=== PATIENT | female | born 1945 | race Caucasian/White ===

== ENCOUNTER 2016-10-24 14:18 | Inpatient (IN) | payer MEDICARE, BC ==
[~2016-10-24] VITALS: Ht 175.3 cm; Wt 73.5 kg
[2016-10-25] MEDS ORDERED: MULT-135 PO (10:00)
[2016-10-25] MEDS ORDERED: LISI-515 PO (10:00)
[2016-11-01] VITALS (11 sets, daily range): BP systolic 110–140; BP diastolic 54–77; PULSE 77–114; RESP 16–18; TEMP 97.9–98.3; O2SAT 97–100
[2016-11-01] MEDS ORDERED: INSULIN HUMAN REGULAR 1,000 UNITS/10 ML VIAL SQ PRN (07:00)
[2016-11-01] MEDS ORDERED: LACTATED RINGER'S 1000 ML IV PRN (07:00)
[2016-11-01] MEDS ORDERED: METOPROLOL TARTRATE 25 MG TAB PO PRN (07:00)
[2016-11-01] MEDS ORDERED: POVIDONE IODINE 5% (ANTISEPSIS KIT) 4 APPLICATIONS EACH NARE PRN (07:00)
[2016-11-01] MEDS ORDERED: ceFAZolin 2 GM PREMIX 50 ML IV SCH (07:00)
[2016-11-01] MEDS ORDERED: CHLORHEXIDINE GLUCONATE 2 % 1 PACK (2 CLOTHS) TOPICAL PRN (07:00)
[2016-11-01] MEDS ORDERED: METRONIDAZOLE 500 MG/100 ML ISONTONIC SOLN IV PRN (07:00)
[2016-11-01] MEDS ORDERED: SODIUM CHLORID 0.9% 500 ML IV PRN (07:00)
--- NOTE | 2016-11-01 07:43 | PD.HP.UP ---
H&P Update Note The Pre-Admit History and Physical Examination regarding the above named patient was reviewed (including, but not limited to, vital signs, heart, lungs, co-morbid conditions), and upon re-examination it is noted that: the patient's condition has not significantly changed since the last examination. Anali Thomas MD November 01, 2016 07:43
[2016-11-01] MEDS ORDERED: FAMOTIDINE 20 MG/2 ML VIAL ONE (08:12)
[2016-11-01] MEDS ORDERED: MIDAZOLAM HCL 2 MG/2 ML VIAL ONE (08:12)
[2016-11-01] MEDS ORDERED: ACETAMINOPHEN 1000 MG/100 ML VIAL IV ONE (08:43)
[2016-11-01] MEDS ORDERED: SUGAMMADEX SODIUM 200 MG/2 ML VIAL IV PUSH ONE ×2 (11:44)
[2016-11-01] MEDS ORDERED: ONDANSETRON HCL 4 MG/2 ML VIAL IV PUSH ONE (12:00)
[2016-11-01] MEDS ORDERED: NORMOSOL R INJ 1,000 ML IV ONE (12:00)
[2016-11-01] MEDS ORDERED: ePHEDrine/NS 25 MG/5 ML SYR IV ONE (12:00)
[2016-11-01] MEDS ORDERED: PROPOFOL 200 MG/20 ML AMP IV ONE (12:00)
[2016-11-01] MEDS ORDERED: PHENYLEPH/NS 1000 MCG/10 ML SYR IV ONE (12:00)
[2016-11-01] MEDS ORDERED: VECURONIUM BROMIDE 20 MG VIAL IV ONE (12:00)
[2016-11-01] MEDS ORDERED: LACTATED RINGER'S 1000 ML INJ 1,000 ML IV ONE (12:00)
[2016-11-01] MEDS ORDERED: POTASSIUM CHLOR 20 MEQ PREMIX 100 ML IV PRN (12:15)
[2016-11-01] MEDS ORDERED: ENALAPRILAT 2.5 MG/2 ML VIAL IV PRN (12:15)
[2016-11-01] MEDS ORDERED: ENALAPRILAT 1.25 MG/ML VIAL IV PRN (12:15)
[2016-11-01] MEDS ORDERED: Post-op Orders (for Pharmacy) MISC XX ONE (12:15)
[2016-11-01] MEDS ORDERED: MORPHINE SULFATE 30 MG/30 ML PCA IV SCH (12:15)
[2016-11-01] MEDS ORDERED: POTASSIUM CHLOR 40 MEQ PREMIX 100 ML IV PRN (12:15)
[2016-11-01] MEDS ORDERED: BENZOCAINE 6 MG/MENTHOL 10 MG LOZENGE BUCCAL PRN (12:15)
[2016-11-01] MEDS ORDERED: ACETAMINOPHEN 325 MG TAB PO PRN (12:15)
[2016-11-01] MEDS ORDERED: ACETAMINOPHEN/HYDROcodone 325 MG/5 MG TAB PO PRN ×2 (12:15)
[2016-11-01] MEDS ORDERED: NALOXONE HCL 0.4 MG/ML AMP IV PRN (12:15)
[2016-11-01] MEDS ORDERED: diphenhydrAMINE HCL 50 MG/ML VIAL IV PRN (12:15)
[2016-11-01] MEDS ORDERED: ceFAZolin INJ 1,000 MG VIAL IV ONE (12:18)
[2016-11-01] MEDS ORDERED: DO NOT ADM ANY ANTICOAGULANT DRUGS PRN (12:25)
[2016-11-01 12:58] LABS: AUTOMATED NEUTROPHIL # 8.2 TH/MM3 (1.8-7.7); BASOPHIL % 0.1 % (0.0-2.0); EOSINOPHIL % 0.1 % (0.0-4.0); HEMATOCRIT 35.8 % (35.0-46.0); HEMO FLAGS DIFF FINAL; LYMPH % 4.5 % (9.0-44.0); LYMPHOCYTE # 0.4 TH/MM3 (1.0-4.8); MEAN CELL VOLUME 96.6 FL (80.0-100.0); MEAN CORPUSCULAR HEMOGLOBIN 32.2 PG (27.0-34.0); MEAN CORPUSCULAR HGB CONC 33.4 % (32.0-36.0); MONO % 4.8 % (0.0-8.0); NEUT % 90.5 % (16.0-70.0); PLATELET COUNT 160 TH/MM3 (150-450); RED BLOOD COUNT 3.71 MIL/MM3 (4.00-5.30); RED CELL DISTRIBUTION WIDTH 12.7 % (11.6-17.2); WHITE BLOOD COUNT 9.1 TH/MM3 (4.0-11.0)
[2016-11-01] MEDS: KETOROLAC TROMETHAMINE 30 MG/ML (IVP) VIAL IVP SCH ×2 (13:00→17:25)
[2016-11-01] MEDS: D5-NS + KCL 20 MEQ INJ 1,000 ML IV SCH ×2 (13:00→21:46)
[2016-11-01 13:13] LABS: BICARBONATE 23.2 MEQ/L (21.0-32.0)
[2016-11-01] MEDS: DEXT 5%-NACL 0.9% 1000 ML INJ 1,000 ML IV SCH ×2 (13:29→23:00)
[2016-11-01] MEDS: PCA - TOTAL MG MORPHINE DELIVERED PER SHIFT SCH ×2 (14:00→21:46)
[2016-11-01] MEDS ORDERED: fentaNYL CITRATE 250 MCG/5 ML AMP ONE (14:11)
--- NOTE | 2016-11-01 15:11 | MP ---
cc: ASHIA THOMAS M.D. DATE OF SURGERY 11/01/2016 PREOPERATIVE DIAGNOSIS Ascending colon polyp. POSTOPERATIVE DIAGNOSIS Ascending colon polyp. PROCEDURE Robotic ascending colectomy. SURGEON Ashia Thomas [facility] ANESTHESIA General per ET tube OPERATIVE INDICATIONS The patient is a 71-year-old female who on recent colonoscopy was noted to have a sessile polyp in the ascending colon, unable to be removed via colonoscope. OPERATIVE FINDINGS Minimal adhesions of the omentum to the ascending colon and to the right anterior abdominal wall. The liver was visibly normal. The gallbladder was not visualized. The right ovary was visualized and was visibly normal as well. Upon removal of the specimen and opening, the patient was noted to have a 2-3 cm sessile polyp as well as a second tinier sessile polyp adjacent in the proximal ascending colon. OPERATIVE COURSE The patient was brought to the operating room, and placed in the supine position. After induction of general anesthesia, all bony prominences were carefully padded, and the bed was broken slightly. The skin of the anterior abdominal wall was then prepped and draped in the usual sterile fashion. A site was then chosen for the camera, being located 2 cm below and to the left of the umbilicus. A 10/12 port was placed at this location under direct vision using a laparoscope. CO2 insufflation was then performed and a brief abdominal survey was undertaken. The patient was noted to have some adhesions of the omentum to the ascending colon and to the anterior abdominal wall, but nothing that would preclude the robotic approach. The #1 port was then placed just to the left of the left midclavicular line, two fingerbreadths below the costal margin, and the assist port was placed 2 cm to the left of this, equal distance between the #1 port and the camera port. The patient was hydroplaned with head slightly down. The adhesions of the omentum to the anterior abdominal wall and the ascending colon were then dissected free using electrocautery. The omentum was then brought up-and-over the transverse colon, until we had good visibility. The remainder of the ports were then placed. The #3 port was placed just inside the right anterior superior iliac spine, and the #2 port was placed just to the right of midline, in the suprapubic area. The robot was then docked. The peritoneum below the ileocolic vessels were then scored and dissection continued in this plane, slowly dissecting free the ascending colon mesentery up to level of the duodenum. The duodenum was then carefully dissected free from the overlying mesentery, up to the level of the base of the transverse mesocolon. The plane was continued above the level of the pancreas, and laterally to the ascending colon. At this point, the small bowel was reversed back down into its more normal orientation, and the ileocolic area was gently placed on stretch. A window was then made around the ileocolic vessels, about chcf down their length towards the ileocecum, as this was known to be benign lesion. The artery was then dissected free circumferentially using electrocautery, and doubly clamped proximally, singly clamped distally, divided and ligated, using Hemolock clamps. The vein was then divided in the same fashion. Some additional dissection was done to free the omentum from where it had wrapped over and across the ascending colon in order to straighten out the colon. Eventually, we were able to straighten that out with some dissection. We had a nice straight visualization. A site was chosen for division of the ascending colon, just proximal to the hepatic flexure. The mesentery at this level was serially divided and ligated using the vessel sealer. A site was chosen for division of the terminal ileum, approximately 12 cm proximal to the ileocecal valve and the mesentery. The mesentery at this level was serially divided and ligated using the vessel sealer. The proximal small bowel was then placed against the distal ascending colon, and lay nicely without tension. Two stay sutures were placed proximally using 2-0 silk suture, and one stay suture was placed distally using 2-0 silk sutures. Small incisions were then made in the bowels just proximal to the planned anastomosis, using electrocautery. The [place] stapler was then brought onto the field. This was gently advanced with one limb down each limb of the bowel. This was closed along the antimesenteric border and fired, thus creating an enteroenterotomy. A reload of the [place] stapler was then placed transversely across the bowel at the proximal edge of the anastomosis, but distal to the enterotomies. This was closed and fired. A second load was necessary to complete the transection. The anastomosis was then examined and it lay nicely without tension. The bowel anastomosis appeared pink and healthy and of adequate length. The silk stay suture at the distal end of the anastomosis lay in a nice orientation as well. All dissection beds were then examined and there was no sign of any significant bleeding. The omentum was brought down to lay across the anastomosis and a locking bowel grasper was placed on the specimen. The robot was then undocked. An 8-10 cm incision was made in the suprapubic area and, using electrocautery, dissection was carried down to the fascia of the anterior abdominal wall. The anterior fascia was divided the length of the skin incision and the medial fibers of the rectus abdominis muscle were then divided as well, opening into the previous #2 port site. The posterior fascia/peritoneum was then divided as well and a wound protector was placed. The specimen was then retrieved and then taken to a back table where it was opened and the polyp was confirmed. An additional tiny polyp was noted to be just next to the polyp of note. The posterior fascia at the suprapubic site was closed in a running fashion using #1 PDS and the anterior fascia was closed in running fashion using #1 PDS. An OpSite was placed across the incision and CO2 insufflation was resumed. The 10/12 trocar sites at the right lower quadrant and the umbilical area were then closed using the crossbow device and 0 Vicryl suture. These sutures were placed and held, but not secured until the abdomen was desufflated. The air was desufflated to the extent possible. The previously placed sutures were then secured. All wounds were copiously irrigated with warm normal saline. The skin at the suprapubic incision was closed in a running subcuticular fashion using 3-0 Vicryl and the port sites were closed in an interrupted subcuticular fashion using 3-0 Vicryl. Steri-Strips and sterile dressing was applied. All sponge, needle and sponge counts were correct, and the patient was returned to the post anesthesia care in stable condition. MD SILVANO Knight/ROLANDO /12:19 PM /2:49 PM [facility]
[2016-11-01] MEDS: metroNIDAZOLE 500 MG INJ 100 ML IV SCH ×2 (15:37→23:30)
[2016-11-01] MEDS: SODIUM CHLORIDE 0.9% FLUSH 5 ML FLUSH IVF SCH (21:00)
[2016-11-02] VITALS (13 sets, daily range): BP systolic 101–167; BP diastolic 53–82; PULSE 78–95; RESP 16–20; TEMP 96.5–98.6; O2SAT 94–98
[2016-11-02] MEDS: KETOROLAC TROMETHAMINE 30 MG/ML (IVP) VIAL IVP SCH ×5 (01:31→23:52)
[2016-11-02] MEDS: D5-NS + KCL 20 MEQ INJ 1,000 ML IV SCH ×4 (04:07→21:11)
[2016-11-02] MEDS: PCA - TOTAL MG MORPHINE DELIVERED PER SHIFT SCH ×3 (05:34→21:01)
[2016-11-02] MEDS: DEXT 5%-NACL 0.9% 1000 ML INJ 1,000 ML IV SCH ×3 (05:51→21:08)
[2016-11-02 05:57] LABS: AUTOMATED NEUTROPHIL # 4.5 TH/MM3 (1.8-7.7); BASOPHIL % 0.1 % (0.0-2.0); EOSINOPHIL % 0.1 % (0.0-4.0); HEMATOCRIT 30.7 % (35.0-46.0); HEMO FLAGS DIFF FINAL; LYMPH % 13.1 % (9.0-44.0); LYMPHOCYTE # 0.8 TH/MM3 (1.0-4.8); MEAN CELL VOLUME 96.5 FL (80.0-100.0); MEAN CORPUSCULAR HEMOGLOBIN 33.4 PG (27.0-34.0); MEAN CORPUSCULAR HGB CONC 34.7 % (32.0-36.0); MONO % 13.9 % (0.0-8.0); NEUT % 72.8 % (16.0-70.0); PLATELET COUNT 140 TH/MM3 (150-450); RED BLOOD COUNT 3.18 MIL/MM3 (4.00-5.30); RED CELL DISTRIBUTION WIDTH 12.7 % (11.6-17.2); WHITE BLOOD COUNT 6.2 TH/MM3 (4.0-11.0)
[2016-11-02 06:24] LABS: BICARBONATE 24.8 MEQ/L (21.0-32.0); POTASSIUM 4.1 MEQ/L (3.5-5.1)
[2016-11-02] MEDS: LISINOPRIL 20 MG TAB PO SCH (09:25)
[2016-11-02] MEDS: PANTOPRAZOLE SODIUM 40 MG VIAL IVP SCH (09:25)
[2016-11-02] MEDS: metroNIDAZOLE 500 MG INJ 100 ML IV SCH (09:26)
[2016-11-02] MEDS: SODIUM CHLORIDE 0.9% FLUSH 5 ML FLUSH IVF SCH ×2 (09:26→21:00)
[2016-11-02] MEDS: HEPARIN SODIUM - SQ 10,000 UNITS/ML VIAL SQ SCH ×2 (11:23→23:52)
[2016-11-02] MEDS: ONDANSETRON HCL 4 MG/2 ML VIAL IV PRN (14:37)
[2016-11-02] MEDS: SODIUM CHLORIDE 0.9% FLUSH 5 ML FLUSH IVF PRN (14:40)
[2016-11-03] VITALS: BP 149/79; PULSE 81; RESP 20; TEMP 97.6; O2SAT 98
[2016-11-03] MEDS: ONDANSETRON HCL 4 MG/2 ML VIAL IV PRN ×2 (01:55→08:52)
[2016-11-03] MEDS: PCA - TOTAL MG MORPHINE DELIVERED PER SHIFT SCH ×3 (05:02→20:06)
[2016-11-03] MEDS: KETOROLAC TROMETHAMINE 30 MG/ML (IVP) VIAL IVP SCH ×4 (05:03→22:59)
[2016-11-03 05:38] LABS: AUTOMATED NEUTROPHIL # 5.9 TH/MM3 (1.8-7.7); BASOPHIL % 0.2 % (0.0-2.0); EOSINOPHIL # 0.1 TH/MM3 (0-0.4); EOSINOPHIL % 0.9 % (0.0-4.0); HEMATOCRIT 37.8 % (35.0-46.0); HEMO FLAGS DIFF FINAL; LYMPH % 8.7 % (9.0-44.0); LYMPHOCYTE # 0.7 TH/MM3 (1.0-4.8); MEAN CELL VOLUME 98.5 FL (80.0-100.0); MEAN CORPUSCULAR HGB CONC 33.5 % (32.0-36.0); MONO % 11.2 % (0.0-8.0); PLATELET COUNT 154 TH/MM3 (150-450); RED BLOOD COUNT 3.84 MIL/MM3 (4.00-5.30); RED CELL DISTRIBUTION WIDTH 13.4 % (11.6-17.2); WHITE BLOOD COUNT 7.5 TH/MM3 (4.0-11.0)
[2016-11-03 05:48] LABS: BICARBONATE 23.8 MEQ/L (21.0-32.0); POTASSIUM 4.5 MEQ/L (3.5-5.1)
[2016-11-03 08:00] VITALS: BP 180/80; PULSE 86; RESP 18; TEMP 96.8; O2SAT 95
[2016-11-03] MEDS: SODIUM CHLORIDE 0.9% FLUSH 5 ML FLUSH IVF SCH ×2 (08:53→20:05)
[2016-11-03] MEDS: LISINOPRIL 20 MG TAB PO SCH (08:53)
[2016-11-03] MEDS: PANTOPRAZOLE SODIUM 40 MG VIAL IVP SCH (08:53)
[2016-11-03] MEDS: D5-NS + KCL 20 MEQ INJ 1,000 ML IV SCH ×2 (11:15→20:06)
[2016-11-03] MEDS: HEPARIN SODIUM - SQ 10,000 UNITS/ML VIAL SQ SCH ×2 (11:16→22:58)
[2016-11-03 12:00] VITALS: BP 162/75; PULSE 72; RESP 18; TEMP 97.5; O2SAT 97
[2016-11-03] MEDS: DEXT 5%-NACL 0.9% 1000 ML INJ 1,000 ML IV SCH ×2 (15:00→20:07)
[2016-11-03 16:00] VITALS: BP 177/84; PULSE 89; RESP 18; TEMP 97.4; O2SAT 96
[2016-11-03 20:00] VITALS: BP 168/85; PULSE 88; RESP 18; TEMP 97.7; O2SAT 97
[2016-11-04] VITALS: BP 149/79; PULSE 92; RESP 18; TEMP 97.1; O2SAT 94
[2016-11-04] MEDS: PCA - TOTAL MG MORPHINE DELIVERED PER SHIFT SCH ×3 (04:54→22:00)
[2016-11-04] MEDS: KETOROLAC TROMETHAMINE 30 MG/ML (IVP) VIAL IVP SCH (04:54)
[2016-11-04 06:03] LABS: AUTOMATED NEUTROPHIL # 4.9 TH/MM3 (1.8-7.7); BASOPHIL # 0.1 TH/MM3 (0-0.2); BASOPHIL % 1.3 % (0.0-2.0); EOSINOPHIL # 0.2 TH/MM3 (0-0.4); EOSINOPHIL % 3.3 % (0.0-4.0); HEMATOCRIT 35.7 % (35.0-46.0); HEMO FLAGS DIFF FINAL; LYMPH % 12.6 % (9.0-44.0); LYMPHOCYTE # 0.9 TH/MM3 (1.0-4.8); MEAN CELL VOLUME 96.2 FL (80.0-100.0); MEAN CORPUSCULAR HGB CONC 34.3 % (32.0-36.0); MONO % 11.9 % (0.0-8.0); NEUT % 70.9 % (16.0-70.0); PLATELET COUNT 185 TH/MM3 (150-450); RED BLOOD COUNT 3.72 MIL/MM3 (4.00-5.30); RED CELL DISTRIBUTION WIDTH 12.6 % (11.6-17.2); WHITE BLOOD COUNT 6.9 TH/MM3 (4.0-11.0)
[2016-11-04 06:27] LABS: POTASSIUM 4.3 MEQ/L (3.5-5.1)
[2016-11-04 08:00] VITALS: BP 144/79; PULSE 96; RESP 17; TEMP 97.1; O2SAT 95
[2016-11-04] MEDS: SODIUM CHLORIDE 0.9% FLUSH 5 ML FLUSH IVF SCH ×2 (09:00→20:40)
[2016-11-04] MEDS: LISINOPRIL 20 MG TAB PO SCH (09:26)
[2016-11-04] MEDS: PANTOPRAZOLE SODIUM 40 MG VIAL IVP SCH (09:27)
[2016-11-04] MEDS: HEPARIN SODIUM - SQ 10,000 UNITS/ML VIAL SQ SCH (11:41)
[2016-11-04 12:00] VITALS: BP 179/81; PULSE 92; RESP 17; TEMP 97.6; O2SAT 97
[2016-11-04] MEDS: SODIUM CHLORIDE 0.9% FLUSH 5 ML FLUSH IVF PRN (12:15)
[2016-11-04 16:00] VITALS: BP 168/80; PULSE 90; RESP 17; TEMP 97.3; O2SAT 96
[2016-11-04] MEDS: ONDANSETRON HCL 4 MG/2 ML VIAL IV PRN (16:57)
[2016-11-04] MEDS: D5-NS + KCL 20 MEQ INJ 1,000 ML IV SCH (16:59)
[2016-11-04 20:00] VITALS: BP 174/81; PULSE 88; RESP 18; TEMP 98; O2SAT 96
[2016-11-04 22:00] VITALS: BP 140/72
[2016-11-05] VITALS: PULSE 88; RESP 18; TEMP 98.6; O2SAT 96
[2016-11-05] MEDS: D5-NS + KCL 20 MEQ INJ 1,000 ML IV SCH (05:05)
[2016-11-05] MEDS: PCA - TOTAL MG MORPHINE DELIVERED PER SHIFT SCH (06:00)
[2016-11-05 08:00] VITALS: BP 151/82; PULSE 95; RESP 20; TEMP 96.9; O2SAT 98
[2016-11-05] MEDS ORDERED: HYDR-3516 PO (08:14)
--- NOTE | 2016-11-05 08:17 | HHI.PR ---
Subjective Remarks POD#4 s/p ileocectomy Emesis yesterday Otherwise feels well, adequate pain control liquid stool Objective Vital Signs Date Time Temp Pulse Resp B/P Pulse Ox O2 Delivery O2 Flow Rate FiO2 11/05/16 06:00 20 11/05/16 00:00 98.6 88 18 96 11/04/16 22:00 140/72 11/04/16 22:00 18 11/04/16 20:00 98.0 88 18 174/81 96 11/04/16 16:00 97.3 90 17 168/80 96 11/04/16 12:00 97.6 92 17 179/81 97 11/04/16 11:41 16 I/O 11/04/16 11/04/16 11/04/16 11/05/16 11/05/16 11/05/16 07:00 15:00 23:00 07:00 15:00 23:00 Intake Total 775 ml 360 ml 591 ml 874 ml Output Total 750 ml 400 ml 300 ml Balance 25 ml 360 ml 191 ml 574 ml Intake Oral 60 ml 360 ml 120 ml 120 ml IV Total 715 ml 471 ml 754 ml Output Urine Total 750 ml 100 ml 300 ml Emesis 300 ml # Voids 2 1 # Bowel Movements 0 1 1 1 Result Diagram: 11/04/1651911/04/16519 Objective Remarks Abdomen soft, mild distension, mildly tender wounds clean Assessment and Plan Assessment and Plan Await improved bowel function Add reglan Home once nausea resolves Anali Thomas MD November 05, 2016 08:17
[2016-11-05] MEDS: PANTOPRAZOLE SODIUM 40 MG VIAL IVP SCH (08:33)
[2016-11-05] MEDS: SODIUM CHLORIDE 0.9% FLUSH 5 ML FLUSH IVF SCH (08:33)
[2016-11-05] MEDS: LISINOPRIL 20 MG TAB PO SCH (08:33)
[2016-11-05] MEDS ORDERED: METOCLOPRAMIDE HCL 10 MG/2 ML VIAL IV PUSH SCH (09:00)
[2016-11-05 12:00] VITALS: BP 161/80; PULSE 89; RESP 19; TEMP 97.5; O2SAT 97
[2016-11-05] MEDS: HEPARIN SODIUM - SQ 10,000 UNITS/ML VIAL SQ SCH ×2 (12:23)
--- NOTE | 2016-11-20 11:14 | MD ---
cc: ASHIA LEACH M.D. ADMISSION DATE: 11/01/2016 DISCHARGE DATE: 11/05/2016 ADMISSION DIAGNOSIS 1. Hypertension 2. Ascending colon polyp DISCHARGE DIAGNOSIS 1. Hypertension 2. Ascending colon polyp PROCEDURE Robotic ascending colectomy. HOSPITAL COURSE The patient is a 71-year-old female who on recent colonoscopy was noted to have a sessile polyp in the ascending colon which was unable to be removed via colonoscope. She was admitted to the hospital on the October after an outpatient bowel prep where she was taken to the operating room and underwent the above-named procedures. Postoperatively, she did well with some emesis postop however, this gradually resolved. Her pain control improved and she was discharged to home with instructions to follow-up with myself in the office. Final pathology revealed a tubulovillous adenoma, as well as a hyperplastic polyp of the colon. MD SILVANO Knight/ROLANDO /1:01 AM /11:15 AM
== END 2016-11-05 14:58 | disposition home or self-care (01) | DRG 331 ==
LOC: HSDI 11-01 06:22 → EDSTATUS 11-01 13:00 → HCIS 11-01 13:42 → N07B 11-02 11:10
PROVIDERS: ADMIT Colon & Rectal Surgery; ATTEND Colon & Rectal Surgery
PROC: 8E0W8CZ Robotic Assisted Procedure of Trunk Region, Via Natural or Artificial Opening Endoscopic (ICD-10-PCS; 2016-11-01)
PROC: 0DBM4ZZ Excision of Descending Colon, Percutaneous Endoscopic Approach (ICD-10-PCS; principal; 2016-11-01 08:13)
DX: D12.2 Benign neoplasm of ascending colon (principal)
CPT/HCPCS: 80048; 85025; 86850; 86900; 86901; 88305; 88307; 94150; C9113; J0131; J0690; J1644; J1885; J2250; J2270; J2370; J2405; J2765; J3010; J3480; J7042; J7120

== ENCOUNTER → 2016-10-25 | Outpatient (CLI) | payer MEDICARE, BC ==
[~2016-10-25] MED LIST: HYDR-3516 PO; LISI-515 PO; MULT-135 PO
[2016-10-25 10:08] LABS: AUTOMATED NEUTROPHIL # 1.9 TH/MM3 (1.8-7.7); BASOPHIL % 0.8 % (0.0-2.0); EOSINOPHIL % 1.1 % (0.0-4.0); HEMATOCRIT 40.7 % (35.0-46.0); HEMO FLAGS DIFF FINAL; LYMPH % 30.4 % (9.0-44.0); MEAN CELL VOLUME 97.6 FL (80.0-100.0); MEAN CORPUSCULAR HEMOGLOBIN 33.3 PG (27.0-34.0); MEAN CORPUSCULAR HGB CONC 34.1 % (32.0-36.0); MONO % 10.4 % (0.0-8.0); NEUT % 57.3 % (16.0-70.0); PLATELET COUNT 206 TH/MM3 (150-450); RED BLOOD COUNT 4.17 MIL/MM3 (4.00-5.30); RED CELL DISTRIBUTION WIDTH 12.9 % (11.6-17.2); WHITE BLOOD COUNT 3.2 TH/MM3 (4.0-11.0)
[2016-10-25 10:18] LABS: APTT (PATIENT) 26.1 SEC (24.3-30.1); INTERNATIONAL NORMALIZED RATIO 0.9 RATIO
[2016-10-25 10:50] LABS: ALKALINE PHOSPHATASE 56 U/L (45-117); ALT (GPT) 19 U/L (10-53); ANION GAP 10 MEQ/L (5-15); AST (GOT) 9 U/L (15-37); BICARBONATE 26.2 MEQ/L (21.0-32.0); BLOOD UREA NITROGEN 11 MG/DL (7-18); CHLORIDE 105 MEQ/L (98-107); GLOMERULAR FILTRATION RATE 83 ML/MIN (>89); GLUCOSE,FASTING 96 MG/DL (74-99); POTASSIUM 4.5 MEQ/L (3.5-5.1); SODIUM (NA) 141 MEQ/L (136-145); TOTAL BILIRUBIN ADULT 0.6 MG/DL (0.2-1.0)
--- NOTE | 2016-10-25 11:32 | RADRPT ---
EXAM DATE/TIME: 10/25/2016 10:35 [place] COMPARISON: No previous studies available for comparison. INDICATIONS : Evaluate for pneumonia,pneumothorax and communicable disease Preop for colectomy MEDICAL HISTORY : None. SURGICAL HISTORY : None. ENCOUNTER: Initial ACUITY: 1 day PAIN SCORE: 0/10 LOCATION: Bilateral chest FINDINGS: PA and lateral views of the chest demonstrate the lungs to be symmetrically aerated without evidence of mass, infiltrate or effusion. The cardiomediastinal contours are unremarkable. Osseous structures are intact. CONCLUSION: 1. No acute cardiopulmonary findings. Rolando Perez MD on October 25, 2016 at 11:29 Board Certified Radiologist. This report was verified electronically.
[2016-10-25 14:23] LABS: BLOOD, URINE NEG (NEG); GLUCOSE,URINE NEG (NEG); KETONE, URINE NEG (NEG); MUCUS URINE FEW /lpf (OCC); NITRITE,URINE NEG (NEG); SQUAMOUS EPITHELIAL CELL URINE <1 /hpf (0-5); URINE COLOR YELLOW (YELLW/STRAW)
[2016-10-25 14:25] LABS: COMMENT (UR) CULT NOT INDICATED; CULTURE IF INDICATED CULT NOT INDICATED
--- NOTE | 2016-10-26 15:50 | EKG ---
Date Performed: 10/25/2016 Time Performed: 09:56:04 PTAGE: 71 years EKG: Sinus rhythm NORMAL ECG NO PREVIOUS TRACING DOCTOR: Kaylee Bahena Interpretating Date/Time 10/26/2016 15:47:38
== END ==
LOC: CPRE 09:27
PROVIDERS: ATTEND Colon & Rectal Surgery
DX: Z01.810 Encounter for preprocedural cardiovascular examination (principal); Z01.811 Encounter for preprocedural respiratory examination; Z01.812 Encounter for preprocedural laboratory examination; D12.2 Benign neoplasm of ascending colon
CPT/HCPCS: 36415; 71020; 80053; 81001; 82378; 85025; 85610; 85730; 93005